=== PATIENT | female | born 1990 | race Caucasian/White ===

== ENCOUNTER 2018-01-10 16:57 | Observation (INO) | payer SELFPAY ==
[2018-01-10] MEDS: SOD CHLORIDE 0.9% 1,000 ML IV (18:09)
[2018-01-10] MEDS: ONDANSETRON 4 MG INJ IV (18:09)
[2018-01-10] MEDS: morphine 4 MG/ML VIAL IV (18:10)
[2018-01-10 18:53] LABS: ADD MAN DIFF? NO
[2018-01-10 18:56] LABS: WHITE BLOOD COUNT 17.2 10^3/ul (4.8-10.8)
[2018-01-10 18:56] LABS: BASOPHIL # 0.1 10^3/ul (0.0-0.1); BASOPHILS % 0.3 % (0.0-2.0); EOSINOPHILS # 0.2 10^3/ul (0.0-0.5); EOSINOPHILS % 1.2 % (0.0-7.0); HEMATOCRIT 42.6 % (37.0-47.0); HEMOGLOBIN 14.3 g/dl (12.0-16.0); LYMPHOCYTES # 2.4 10^3/ul (0.8-2.9); LYMPHOCYTES % 13.9 % (15.0-51.0); MEAN CORPUSCULAR HEMOGLOBIN 30.4 pg (29.0-33.0); MEAN CORPUSCULAR HGB CONC 33.6 g/dl (32.0-37.0); MEAN CORPUSCULAR VOLUME 90.4 fl (82.0-101.0); MEAN PLATELET VOLUME 10.8 fl (7.4-10.4); MONOCYTE # 0.8 10^3/ul (0.3-0.9); MONOCYTES % 4.4 % (0.0-11.0); NEUTROPHIL # 13.7 10^3/ul (1.6-7.5); NEUTROPHILS % 79.7 % (39.0-77.0); PLATELET COUNT 332 10^3/UL (140-415); RED BLOOD COUNT 4.71 10^6/ul (4.20-5.40); RED CELL DISTRIBUTION WIDTH 12.9 % (11.5-14.5)
[2018-01-10 19:10] LABS: ADD UMIC YES; UR ASCORBIC ACID NEGATIVE (NEGATIVE); UR BILIRUBIN (Dip) NEGATIVE (NEGATIVE); UR BLOOD (Dip) 2+ mg/dL (NEGATIVE); UR CLARITY CLEAR (CLEAR); UR COLOR YELLOW (YELLOW); UR GLUCOSE (Dip) NEGATIVE (NEGATIVE); UR KETONES (Dip) NEGATIVE (NEGATIVE); UR LEUKOCYTE ESTERASE (Dip) 1+ Leu/ul (NEGATIVE); UR NITRITE (Dip) NEGATIVE (NEGATIVE); UR RBC 1 /HPF (0-5); UR SPECIFIC GRAVITY (Dip) 1.017 (1.003-1.030); UR SQUAMOUS EPITHELIAL CELL FEW /HPF (FEW); UR TOTAL PROTEIN (Dip) NEGATIVE (NEGATIVE); UR UROBILINOGEN (Dip) NEGATIVE (NEGATIVE); UR WBC 1 /HPF (0-5)
[2018-01-10 19:13] LABS: ALANINE AMINOTRANSFERASE 25 IU/L (13-69); ALBUMIN 5.1 g/dl (3.3-4.9); ALBUMIN/GLOBULIN RATIO 1.27; ALKALINE PHOSPHATASE 51 IU/L (42-121); ANION GAP 19 (8-16); ASPARTATE AMINO TRANSFERASE 20 IU/L (15-46); BILIRUBIN,INDIRECT 0.4 mg/dl (0-1.1); BILIRUBIN,TOTAL 0.4 mg/dl (0.2-1.3); BLOOD UREA NITROGEN 10 mg/dl (7-20); CALCIUM 9.7 mg/dl (8.4-10.2); CARBON DIOXIDE 23 mmol/L (21-31); CHLORIDE 106 mmol/L (97-110); CREATININE 0.59 mg/dl (0.44-1.00); GLUCOSE 99 mg/dl (70-220); LIPASE 58 U/L (23-300); POTASSIUM 3.7 mmol/L (3.5-5.1); SODIUM 144 mmol/L (135-144); TOTAL PROTEIN 9.1 g/dl (6.1-8.1)
[2018-01-10] MEDS ORDERED: CEFAZOLIN 1 GM INJ (20:00)
[2018-01-10] MEDS ORDERED: METOCLOPRAMIDE 10 MG INJ (20:00)
[2018-01-10] MEDS ORDERED: DEXAMETHASONE 4 MG/ML 1 ML INJ (20:00)
[2018-01-10] MEDS ORDERED: LIDOCAINE 2% (SDV) 5 ML INJ (20:00)
[2018-01-10 20:42] LABS: INR 0.98; PROTIME 13.1 Sec (11.9-14.9)
[2018-01-10 20:43] LABS: PARTIAL THROMBOPLASTIN TIME 26.4 Sec (25.0-35.0)
[2018-01-10 21:04] LABS: LACTATE DEHYDROGENASE 496 IU/L (313-618)
[2018-01-10 21:22] LABS: HEMOGLOBIN 11.8 g/dl (12.0-16.0)
[2018-01-10 21:22] LABS: HEMATOCRIT 35.7 % (37.0-47.0)
[2018-01-10 21:36] LABS: CANCER ANTIGEN 125 17.2 U/ml (0.0-35.0)
[2018-01-10 21:40] LABS: CANCER ANTIGEN 19-9 41.8 U/ml (0.0-37.0)
[2018-01-10] MEDS ORDERED: SUCCINYLCHOLINE CHLORIDE 100 MG/5 ML SYG IV (22:39)
[2018-01-10] MEDS ORDERED: PROPOFOL 20 ML (22:39)
[2018-01-10] MEDS ORDERED: SUGAMMADEX SODIUM 200 MG/2 ML VIAL IV (22:39)
[2018-01-10] MEDS ORDERED: MIDAZOLAM 1 MG/ML 2 ML INJ (22:39)
[2018-01-10] MEDS ORDERED: FENTAnyl 50 MCG/ML VIAL (22:39)
[2018-01-10] MEDS ORDERED: ONDANSETRON 4 MG INJ (22:40)
[2018-01-10] MEDS ORDERED: ROCURONIUM 50 MG INJ (22:40)
[2018-01-10] MEDS ORDERED: IPRATROPIUM (NEB) 0.5 MG/2.5 ML AMP HHN (23:00)
[2018-01-10] MEDS ORDERED: DIPHENHYDRAMINE 50 MG INJ IV (23:00)
[2018-01-10] MEDS ORDERED: FENTAnyl 50 MCG/ML VIAL IV (23:00)
[2018-01-10] MEDS ORDERED: HYDROmorphONE 1 MG/5 ML IV SYRINGE IV ×3 (23:00)
[2018-01-10] MEDS: BUPIVACAINE 0.25% (MPF) 30 ML INJ INJ (23:30)
[2018-01-10] MEDS ORDERED: BUPIVACAINE 0.25% (MPF) 30 ML INJ (23:37)
[2018-01-11] MEDS ORDERED: ACETAMINOPHEN 325 MG TAB PO (01:00)
[2018-01-11] MEDS ORDERED: DIPHENHYDRAMINE 50 MG INJ IV (01:00)
[2018-01-11] MEDS ORDERED: CEPASTAT LOZENGE MT (01:00)
[2018-01-11] MEDS ORDERED: HYDROCODONE/APAP (5/325) TAB PO (01:00)
[2018-01-11] MEDS: ONDANSETRON 4 MG INJ IV ×2 (01:10→12:39)
[2018-01-11] MEDS: MEPERIDINE 25 MG INJ IV (01:10)
[2018-01-11] MEDS: FENTAnyl 50 MCG/ML VIAL IV (01:11)
[2018-01-11] MEDS: KETOROLAC 30 MG INJ IV (01:45)
[2018-01-11] MEDS: LACTATED RINGER'S 1,000 ML IV ×4 (01:47→12:42)
[2018-01-11] MEDS: METOCLOPRAMIDE 10 MG INJ IV ×5 (02:58→14:34)
[2018-01-11] MEDS: HYDROmorphONE 0.5 MG/0.5 ML SYG IV (02:59)
[2018-01-11] MEDS: IBUPROFEN 600 MG TAB PO ×3 (03:00→13:00)
[2018-01-11] MEDS: FAMOTIDINE 20 MG INJ IV (08:48)
[2018-01-11] MEDS: HYDROmorphONE 1 MG/ML SYG IV (11:10)
[2018-01-11] MEDS: [UNRECOGNIZED DRUG - OTHER] IV (13:37)
[2018-01-11] MEDS: DEXTROSE 5% IV (13:37)
[2018-01-11 13:49] LABS: HEMOGLOBIN 10.6 g/dl (12.0-16.0)
== END 2018-01-11 18:00 | disposition home or self-care (01) ==
LOC: SDS 22:17 → MS2 01-11 02:11 → FTE 16:57
DX: N83.11 Corpus luteum cyst of right ovary (principal); K66.1 Hemoperitoneum
CPT/HCPCS: 58662; 74176; 76830; 76856; 80053; 81001; 81025; 83615; 83690; 84702; 85014; 85018; 85025; 85610; 85730; 86301; 86304; 86850; 86900; 86901; 86920; 87086; 88305